=== PATIENT | female | born 2000 ===

== ENCOUNTER 2023-11-12 17:52 | Emergency (ER) | payer MEDICAID, SELFPAY ==
--- NOTE | ~2023-11-12 | US_ITS ---
EXAMINATION: US PELVIS CLINICAL INFORMATION: Pelvic pain. Query torsion. COMPARISON: None available. TECHNIQUE: Ultrasound of the pelvis is performed using both transabdominal and transvaginal transducers along with Doppler. Transvaginal imaging is performed due to inadequate visualization transabdominally. FINDINGS: Uterus: The uterus is anteverted and measures 7 x 3.3 x 4.3 cm. The double wall endometrial thickness is 0.6 mm. The uterus is smooth in contour and has normal myometrial echogenicity. No visible fibroid. There is a vaginal cyst measuring 1.3 x 0.8 x 1.2 cm. Adnexa: Both ovaries are visualized. There is normal color flow to the adnexa. There is no ovarian torsion. There is no pelvic ascites or fluid collection. Right ovary measures 2.3 x 1.6 x 1.4 cm. This correlates with a volume of 2.7 mL. Left ovary measures 2.3 x 2.4 x 1.9 cm. This correlates with a volume of 5.5 mL. Both ovaries contain small follicular cysts. US/US pelvic and transvaginal IMPRESSION: No evidence of ovarian torsion. There is a vaginal cyst measuring 1.3 x 0.8 x 1.2 cm.
--- NOTE | ~2023-11-12 | US_ITS ---
EXAMINATION: US PELVIS CLINICAL INFORMATION: Pelvic pain. Query torsion. COMPARISON: None available. TECHNIQUE: Ultrasound of the pelvis is performed using both transabdominal and transvaginal transducers along with Doppler. Transvaginal imaging is performed due to inadequate visualization transabdominally. FINDINGS: Uterus: The uterus is anteverted and measures 7 x 3.3 x 4.3 cm. The double wall endometrial thickness is 0.6 mm. The uterus is smooth in contour and has normal myometrial echogenicity. No visible fibroid. There is a vaginal cyst measuring 1.3 x 0.8 x 1.2 cm. Adnexa: Both ovaries are visualized. There is normal color flow to the adnexa. There is no ovarian torsion. There is no pelvic ascites or fluid collection. Right ovary measures 2.3 x 1.6 x 1.4 cm. This correlates with a volume of 2.7 mL. Left ovary measures 2.3 x 2.4 x 1.9 cm. This correlates with a volume of 5.5 mL. Both ovaries contain small follicular cysts. US/US pelvic ovarian doppler IMPRESSION: No evidence of ovarian torsion. There is a vaginal cyst measuring 1.3 x 0.8 x 1.2 cm.
[2023-11-12 17:57] VITALS: BP 105/63; PULSE 79; RESP 20; TEMP 36.1; O2SAT 100; BMI 25.1
--- NOTE | 2023-11-12 17:59 | ED_ITS ---
HPI - General Adult General Chief complaint: Abdominal Pain Stated complaint: breast pain, belly pain Time Seen by Provider: 11/12/23 20:07 Source: patient, family (Mom) and emergency operator (kadeem Creole) Mode of arrival: ambulatory Limitations: language barrier (Singaporean Creole) History of Present Illness ED Provider: LEROY KNOX PA-C HPI narrative: 23-year-old female with no significant past medical history presents to the emergency department today for evaluation of suprapubic abdominal pain that began this morning. Admits to associated myalgias, decreased p.o. intake and nausea without vomiting. Denies known sick contacts. Denies fever, chills, rashes, sore throat, cough, hemoptysis, constipation, diarrhea, flank pain, dysuria, hematuria. She is currently on her menstrual period. Denies history of abdominal surgery. Denies previous pregnancies. Related Data Allergies Allergy/AdvReac Type Severity Reaction Status Date / Time No Known Allergies Allergy Verified 11/12/23 18:04 Review of Systems 2 Review of Systems: Constitutional: No fever, chills, fatigue, night sweats, weight changes ENT/Mouth: No ear pain, hearing loss, nasal congestion, sinus pain, rhinorrhea, sore throat Eyes: No eye pain, swelling, redness, vision changes, discharge Cardio: No chest pain, palpitations, SEN, orthopnea, peripheral edema Pulm: No SOB, cough, sputum, wheezing, dyspnea, hemoptysis GI: No nausea, vomiting, hematemesis, abdominal pain, diarrhea, constipation, hematochezia, melena, +abdominal pain : No irregular bleeding, dysuria, frequency, urgency, hesitancy, hematuria, flank pain, urinary flow changes, urinary incontinence or retention MSK: No back pain, neck pain, joint pain, myalgias Skin: No lesions, rashes Neuro: No weakness, numbness, paresthesias, LOC, dizziness, headache Psych: No anxiety/panic, depression, SI/HI, AH/VH All other systems reviewed and are negative. [facility] Past Medical History Attestation statement: The following information was validated with the patient. Source: old records reviewed and nursing notes reviewed Social History Social History Advance Directives: No Advance Directives Information Provided: No Do you have a plan to hurt others: No Plan Physical Exam ED Vital Signs: Vital Signs - 24 hr 11/12/23 17:57 11/12/23 21:50 Temperature 96.9 F 97.6 F Pulse Rate 79 78 Respiratory Rate 20 18 Blood Pressure 105/63 98/66 Pulse Oximetry 100 99 Oxygen Delivery Method Room Air Room Air BMI result Body Mass Index 25.1 vital signs stable Const General: cooperative, healthy appearing, comfortable and no acute distress Orientation/consciousness: patient oriented x3 Limitations: no limitations HENMT Head: Yes normal to inspection, Yes No palpable skull fracture present, Yes normocephalic and Yes atraumatic Eyes General: appearance normal, both eyes and all related structures Pupils: Equal, round and reactive pupils present Resp Effort & Inspection: normal respiratory effort and able to speak in complete sentences Auscultation: clear to auscultation bilaterally Cardio Rate: regular rate Rhythm: regular rhythm GI Inspection: Yes normal to inspection Palpation (GI): Soft to palpation, not firm, no guarding and No hepatosplenomegaly present Auscultation: normal bowel sounds General: Yes no CVA tenderness Back/Spine/Pelvis Back: no CVA tenderness Skin General skin exam: no rashes or lesions noted Neuro General: patient oriented x3 and gait normal Cranial nerves: Yes Equal, round and reactive pupils present Extrem General: Yes normal to inspection Course Course Course Narrative: This is a Rapid Medical Examination (RME) performed by Tim Knox PA-C in triage. Full HPI, ROS, assessment and treatment plan per primary provider in the Main ED. 23 yo female here w/mom for eval of suprapubic abdominal pain and myalgias. admits to decreased PO intake and nausea. no vomiting. no known sick contacts. denies fever, chills. currently on menstrual period. abd soft, ND/NT, no rebound or guarding. vitals stable. tolerating water in triage. Plan: labs, UA, viral serology ordered Reevaluation(s) Reevaluation #1: 8098-- CBC without leukocytosis or anemia. microcytic anemia with H&H 10.4/33.2. no priors to compare to. Chemistry without acute electrolyte requiring intervention. Normal renal function. Normal liver function. Lipase WNL. Patient tested negative for COVID, flu, RSV. Urine showing large amount of blood and over 20 RBCs consistent with current menstruation. Negative for nitrites, leukocyte, WBC, bacteria. No infection. Negative for . > patient stable at the end of my shift. sign out given to my colleague, Lay STARKEY pending pelvic ultrasound results and disposition. Reevaluation #2: US/US pelvic ovarian doppler IMPRESSION: No evidence of ovarian torsion. There is a vaginal cyst measuring 1.3 x 0.8 x 1.2 cm. Stable for discharge Time: 23:21 Medical Decision Making Medical Decision Making [facility] Narrative: 23-year-old female with no significant past medical history presents to the emergency department today for evaluation of suprapubic abdominal pain that began this morning. VSS. She is non toxic appearing and in NAD. Skin w/d/i. Abdomen is soft, ND/NT, no rebound or guarding. normoactive bs x4. no cvat b/l. Differential diagnosis includes menstrual cramps, dysmenorrhea, uti, viral syndrome, gastroenteritis, IUP, ectopic ovarian cyst. unlikely STI, pyelonephritis, torsion. Plan for labs, viral serology, UA, u preg. Differential Diagnosis Differential Diagnoses: The differential diagnosis associated with the presentation includes as above. Admission/Observation not indicated. Lab Data [facility] Lab Attestation statement: I reviewed the patient's lab results. as above. 11/12/23 19:17 11/12/23 19:17 Labs: Lab Results 11/12/23 11/12/23 Range/Units 18:30 19:17 WBC 7.8 (4.8-10.8) X10*3/uL RBC 4.51 (4.20-5.50) X10*6/uL Hgb 10.4 L (12.0-16.0) g/dl Hct 33.2 L (37.0-47.0) % MCV 73.6 L (80.0-98.0) fL MCH 23.1 L (27.0-33.0) pg MCHC 31.3 (31.0-35.0) g/dl RDW 14.9 (11.0-16.0) % Plt Count 296 (160-400) X10*3/uL MPV 10.0 (9.4-12.3) fL Immature Gran % (Auto) 0.4 (0.0-0.4) % Neut % (Auto) 77.6 H (45-73) % Lymph % (Auto) 16.5 L (20-40) % Meagher % (Auto) 4.8 (2-11) % Eos % (Auto) 0.3 (0-4) % Baso % (Auto) 0.4 (0-2) % Lymph # (Auto) 1.3 (1.2-4.9) X10*3/uL Meagher # (Auto) 0.4 (0.1-1.2) X10*3/uL Eos # (Auto) 0.0 (0.0-0.4) X10*3/uL Baso # (Auto) 0.0 (0.0-0.2) X10*3/uL Abs Immat Gran (auto) 0.03 (0.00-0.03) X10*3/uL Absolute Neuts (auto) 6.0 (2.0-8.3) x10*3/uL Absolute Nucleated RBC 0.000 (0.0-0.012) X10*3/uL Nucleated RBC % (auto) 0.0 (0.0-0.2) /100WBC Sodium 140 (135-145) mmol/L Potassium 3.9 (3.3-5.1) mmol/L Chloride 108 (96-108) mmol/L Carbon Dioxide 21 L (22-29) mmol/L Anion Gap 15 (12-20) BUN 9 (9-16) mg/dL Creatinine 0.65 (0.5-1.4) mg/dL Estim Creat Clear Calc 128.1 Estimated GFR > 60 Random Glucose 119 H (60-115) mg/dL Calcium 9.4 (8.4-10.2) mg/dL Magnesium 1.8 (1.6-2.6) mg/dL Total Bilirubin 0.3 (0.0-1.0) mg/dL AST 25 (5-31) U/L ALT 16 (0-31) U/L Alkaline Phosphatase 41 (39-117) U/L Total Protein 7.7 (6.5-8.0) g/dL Albumin 4.3 (3.5-5.0) g/dL Lipase 25 (8-78) U/L Urine Color Yellow Urine Appearance Clear Urine pH 6.0 (5.0-9.0) Ur Specific [place] 1.020 (1.005-1.025) Urine Protein Negative (Neg-Trace) mg/dL Urine Glucose (UA) Negative (Negative) mg/dL Urine Ketones Negative (Negative) mg/dL Urine Blood Large (3+) H (Negative) Urine Nitrite Negative (Negative) Ur Leukocyte Esterase Negative (Negative) Urine RBC >20 H (0-2) /HPF Urine WBC 0-5 (0-5) /HPF Ur Squamous Epith Cells 0-2 (0-2) /HPF Urine Bacteria None Seen (None Seen) Hyaline Casts 0-2 (0-2) /LPF Urine Test NEGATIVE (NEGATIVE) Influenza Type A (PCR) NEGATIVE (Negative) Influenza Type B (PCR) NEGATIVE (Negative) RSV RNA Qual (PCR) NEGATIVE (Negative) SARS-CoV-2 RNA (RT-PCR) NEGATIVE (Negative) Independent Interpretation I performed an independent interpretation of an: Ultrasound Radiology Impression Discussion of test interpretation with radiology: I have reviewed the radiologist's reading. Radiologist Impression: US/US pelvic ovarian doppler IMPRESSION: No evidence of ovarian torsion. There is a vaginal cyst measuring 1.3 x 0.8 x 1.2 cm. Independent Historian Clinical information obtained from an independent historian. History obtained from or confirmed by: Parent (mom) Prescription Management I considered prescription management with: Pain Medication Social Determinants Patient?s care significantly limited by Social Determinants of Health including: Other Social Determinant of Health Critical Care Time Critical Care Time Critical Care Time: No Discharge Plan Discharge Clinical Impression: Dysmenorrhea Patient Disposition: Home, Self-Care Instructions: Dysmenorrhea (ED) Additional Instructions: Your labs today are reassuring. Your urine is positive for blood which is consistent with your current menstrual period. Your urine does not show infection or . You tested negative for covid/flu/rsv. Your presentation is consistent with menstrual cramps. You may take NSAIDS such as Ibuprofen for pain control. You have been provided with referrals to PCP and OBGYN. You may call them to establish care. Return with new or worsening symptoms. In the case of an emergency call 911. Referrals: [facility] [place] Family Medicine [Provider Group] [facility] [place] [facility] [Provider Group] [facility] [place] [facility] [Provider Group] [facility] [place] Women's Services [Provider Group] Interventions: ED Discharge Assessment Last Done: 11/12/23 23:45 Discharge Date/Time: 11/12/23 23:45 Print Language: Deena Kerns
[2023-11-12 18:53] LABS: Appearance Urine Clear; Color Urine Yellow; Glucose Urine UA Negative (Negative); Leukocyte Esterase Urine Negative (Negative); Nitrite Urine Negative (Negative); UMIC TRIGGER UACC YES; UPreg QC Valid YES; Urine Blood Large (3+) (Negative); Urine Ketones Negative (Negative); Urine Pregnancy NEGATIVE (NEGATIVE); Urine Protein Negative (Neg-Trace)
[2023-11-12 18:55] LABS: Bacteria Urine None Seen (None Seen); Hyaline Casts Urine 0-2 /LPF (0-2); RBC Urine >20 /HPF (0-2); Squamous Epithelial Cell Urine 0-2 /HPF (0-2); WBC Urine 0-5 /HPF (0-5)
[2023-11-12 19:21] LABS: MANUAL DIFF FLAG NO
[2023-11-12 19:23] LABS: Basophils Percent Auto 0.4 % (0-2); Eosinophils Percent Auto 0.3 % (0-4); Hematocrit 33.2 % (37.0-47.0); Hemoglobin 10.4 g/dl (12.0-16.0); Imm Gran Abs Auto 0.03 X10*3/uL (0.00-0.03); Imm Gran Pct Auto 0.4 % (0.0-0.4); Lymphocytes Absolute Auto 1.3 X10*3/uL (1.2-4.9); Lymphocytes Percent Auto 16.5 % (20-40); Mean Corpuscular HGB Conc 31.3 g/dl (31.0-35.0); Mean Corpuscular Hemoglobin 23.1 pg (27.0-33.0); Mean Corpuscular Volume 73.6 fL (80.0-98.0); Monocytes Absolute Auto 0.4 X10*3/uL (0.1-1.2); Monocytes Percent Auto 4.8 % (2-11); Neutrophils Percent Auto 77.6 % (45-73); Platelet Count 296 X10*3/uL (160-400); Red Blood Count 4.51 X10*6/uL (4.20-5.50); Red Cell Distribution Width 14.9 % (11.0-16.0); White Blood Count 7.8 X10*3/uL (4.8-10.8)
[2023-11-12 19:24] LABS: Influenza A PCR NEGATIVE (Negative); Influenza B PCR NEGATIVE (Negative); Resp Syncy Virus RNA Qual PCR NEGATIVE (Negative); SARS COV2 PCR INHOUSE NEGATIVE (Negative)
[2023-11-12 19:39] LABS: Alanine Aminotransferase 16 U/L (0-31); Albumin Level 4.3 g/dL (3.5-5.0); Alkaline Phosphatase 41 U/L (39-117); Anion Gap 15 (12-20); Aspartate Amino Transferase 25 U/L (5-31); Bilirubin Total 0.3 mg/dL (0.0-1.0); Blood Urea Nitrogen 9 mg/dL (9-16); Calcium 9.4 mg/dL (8.4-10.2); Carbon Dioxide 21 mmol/L (22-29); Chloride 108 mmol/L (96-108); Creatinine Clr Calc Pharmacy 128.1; Estimated Glomerular Filt Rate > 60; Glucose Random 119 mg/dL (60-115); Lipase 25 U/L (8-78); Magnesium 1.8 mg/dL (1.6-2.6); Potassium 3.9 mmol/L (3.3-5.1); Sodium 140 mmol/L (135-145); Total Protein 7.7 g/dL (6.5-8.0)
[2023-11-12 21:50] VITALS: BP 98/66; PULSE 78; RESP 18; TEMP 36.4; O2SAT 99
[2023-11-12 23:45] VITALS: BP 106/64; PULSE 80; RESP 18; TEMP 36.3; O2SAT 99
== END 2023-11-12 23:45 | disposition home or self-care (01) ==
PROVIDERS: Physician Assistant Medical; Emergency Provider Emergency Medicine Emergency Medical Services
DX: N94.6 Dysmenorrhea, unspecified (principal)
CPT/HCPCS: 0241U; 76830; 76856; 80053; 81001; 81025; 83690; 83735; 85025; 93975; 99283; 99284